=== PATIENT | male | born 1960 | race Two or more races ===

== ENCOUNTER 2020-01-04 15:48 | Outpatient (CLI) | payer OTHER | END 2020-01-04 15:52 | disposition home or self-care (01) | LOC: RAD 15:48 | PROVIDERS: ATTEND Family Medicine | DX: M25.721 Osteophyte, right elbow (principal); G89.11 Acute pain due to trauma; M25.521 Pain in right elbow ==

== ENCOUNTER 2020-01-16 12:51 | Outpatient (CLI) | payer OTHER | END 2020-01-16 12:56 | disposition home or self-care (01) | LOC: RAD 12:51 | PROVIDERS: ATTEND Specialist | DX: M19.131 Post-traumatic osteoarthritis, right wrist (principal) ==

== ENCOUNTER 2020-01-22 17:16 | Outpatient (CLI) | payer OTHER | END 2020-01-22 18:00 | disposition home or self-care (01) | LOC: LAB 17:16 | PROVIDERS: ATTEND Orthopaedic Surgery | DX: D64.89 Other specified anemias (principal); M06.4 Inflammatory polyarthropathy; M79.644 Pain in right finger(s); M79.641 Pain in right hand ==

== ENCOUNTER 2020-03-14 16:28 | Outpatient (CLI) | payer OTHER | END 2020-03-14 16:35 | disposition home or self-care (01) | LOC: RAD 16:28 | PROVIDERS: ATTEND Plastic Surgery | DX: M71.541 Other bursitis, not elsewhere classified, right hand (principal); M62.441 Contracture of muscle, right hand ==

== ENCOUNTER 2020-04-08 14:19 | Outpatient (CLI) | payer OTHER | END 2020-04-08 14:49 | disposition home or self-care (01) | LOC: TOM 14:19 | PROVIDERS: ATTEND Orthopaedic Surgery | DX: M24.541 Contracture, right hand (principal) ==

== ENCOUNTER → 2020-05-04 11:27 | Outpatient (CLI) | payer OTHER ==
[~2020-05-04 11:27] MED LIST: ADULT LOW DOSE81 M1 PO; GABAPENTIN800 M1 PO; LIPITOR20 MG PO; PEPCID40 MG PO; ZESTRIL20 MG PO
== END | disposition home or self-care (01) ==
LOC: LAB 11:27
PROVIDERS: ATTEND Orthopaedic Surgery
DX: Z03.818 Encounter for observation for suspected exposure to other biological agents ruled out (principal)

== ENCOUNTER 2020-05-06 08:26 | Outpatient (CLI) | payer OTHER | END 2020-05-06 14:58 | disposition home or self-care (01) | LOC: LAB 08:26 | PROVIDERS: ATTEND Orthopaedic Surgery | DX: Z03.818 Encounter for observation for suspected exposure to other biological agents ruled out (principal) ==

== ENCOUNTER 2020-05-10 08:00 | Day surgery (SDC) | payer OTHER | END 2020-05-10 17:45 | disposition home or self-care (01) | LOC: CIR.AMB 08:00 → ADM 05-27 09:00 | PROVIDERS: ATTEND Orthopaedic Surgery | DX: M24.541 Contracture, right hand (principal); G56.21 Lesion of ulnar nerve, right upper limb; M24.59 Contracture, other specified joint; Z20.822 Contact with and (suspected) exposure to COVID-19 ==

== ENCOUNTER 2024-06-01 15:07 | Outpatient (CLI) | payer OTHER | END 2024-06-01 15:13 | disposition home or self-care (01) | LOC: RAD 15:07 | PROVIDERS: ATTEND Orthopaedic Surgery Orthopaedic Surgery of the Spine | DX: G89.11 Acute pain due to trauma (principal) ==